=== PATIENT | male | born 1985 | race Two or more races ===

== ENCOUNTER 2017-08-20 20:56 | Emergency (ER) | payer OTHER ==
[~2017-08-20] VITALS: Ht 170.2 cm; Wt 99.8 kg
[~2017-08-20 20:56] MED LIST: ALLEGRA ALLERG180 M1 PO; ATARAX25 MG ORAL; ATIVAN0.5 MG ORAL; BENADRYL25 MG ORAL; LOSARTAN POTASS25 MG ORAL; METOPROLOL TART50 M1 ORAL; MIRVASO30 GM TP; VERDESO100 GM TP
[2017-08-20] MEDS ORDERED: CATAPRES0.1 MG ORAL (21:08)
[2017-08-20] MEDS ORDERED: CLINDAMYCIN HC150 MG ORAL (21:08)
[2017-08-20] MEDS ORDERED: LEVOFLOXACIN500 MG ORAL (21:08)
[2017-08-20] MEDS ORDERED: Solu-MEDROL 125mg Inj IVP ONE (21:30)
[2017-08-20] MEDS ORDERED: Ampicillin/Sulbactam Sod 3 GM in NS 110 ML IVPB ONE (21:30)
[2017-08-20] MEDS ORDERED: Ketorolac 30mg Inj IV ONE (21:30)
--- NOTE | 2017-08-20 21:37 | Emergency Room Report ---
History of Present Illness General Chief Complaint: Fever Source: Patient Present Illness HPI Patient present with complaints of sore throat Initially several days ago he was seen by primary physician Put on Levaquin As his discomfort and symptoms persisted his medication was changed to clindamycin After taking a dose at approximate 6:00 he began feeling some palpitations And as his symptoms were persisting presents to the ER Patient had mild forehead discomfort as well pain with swallowing 5 out of 10 fevers have subsided recently denies any posterior neck pain denies any photophobia He was having some palpitations prior to arrival Allergies: Coded Allergies: PEANUT (Verified Allergy, Severe, 06/03/13) [place] Grass (Verified Allergy, Unknown, 08/20/17) Common Ragweed (Verified Allergy, Unknown, 08/20/17) Dermatophagoides Farinae (Verified Allergy, Unknown, 08/20/17) Dermatophagoides Pteronyssinus (Verified Allergy, Unknown, 08/20/17) Arnold Grass (Verified Allergy, Unknown, 08/20/17) [place] Tree (Verified Allergy, Unknown, 08/20/17) Sesame Seed (Verified Allergy, Unknown, 08/20/17) [place] Grass (Verified Allergy, Unknown, 08/20/17) Wheat (Verified Allergy, Unknown, 08/20/17) AMITRIPTYLINE (Verified Adverse Reaction, Unknown, 08/20/17) FLUSHED HYDROCHLOROTHIAZIDE (Verified Adverse Reaction, Unknown, 08/20/17) FLUSHED Patient History Past Medical History: see triage record Pertinent Family History: none Reviewed Nursing Documentation: PMH: Agreed; PSxH: Agreed Nursing Documentation-PMH Past Medical History: No History, Except For Hx Hypertension: Yes Review of Systems All Other Systems: negative except mentioned in HPI Physical Exam Vital Signs Date Time Temp Pulse Resp B/P (MAP) Pulse Ox O2 Delivery O2 Flow Rate FiO2 08/20/17 21:00 100.9 118 16 153/83 98 Room Air 100.9 Sp02 EP Interpretation: reviewed, normal General Appearance: well appearing, no apparent distress Head: normocephalic, atraumatic Eyes: bilateral eye PERRL, bilateral eye EOMI ENT: hearing grossly normal, TMs + canals normal, uvula midline, pharyngeal erythema - With exudates on the left side Neck: full range of motion, supple, no meningismus, no bony tend Respiratory: lungs clear, normal breath sounds, no rhonchi, no respiratory distress, no retraction, no accessory muscle use Cardiovascular #1: normal peripheral pulses, regular rate, rhythm, no edema, no gallop, no JVD, no murmur Gastrointestinal: normal bowel sounds, non tender, soft, no mass, no organomegaly, non-distended, no guarding, no hernia, no pulsatile mass, no rebound Genitourinary: no CVA tenderness Musculoskeletal: normal inspection Neurologic: oriented x3, 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, 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, motor strength/ tone normal, sensory intact Psychiatric: mood/affect normal Skin: normal color, no rash, warm/dry, palpation normal Lymphatic: normal inspection, no adenopathy Medical Decision Making Diagnostic Impression: Primary Impression: Pharyngitis Additional Impression: Medication reaction ER Course Patient appears to have had a reaction to the clindamycin Clinical exam does show pharyngeal exudate on the left side No signs of any peritonsillar abscess Patient was given IV hydration pain medication At this time will have antibiotic switched to Augmentin and requires close outpatient follow-up Last Vital Signs Date Time Temp Pulse Resp B/P (MAP) Pulse Ox O2 Delivery O2 Flow Rate FiO2 08/20/17 21:00 100.9 118 16 153/83 98 Room Air 100.9 Status: improved Disposition: HOME, SELF-CARE Condition: Improved Scripts Amoxicillin/Potassium Clav 875-125* (AUGMENTIN 875-125 TABLET*) 1 Each Tablet 1 TAB ORAL TWICE A DAY, #20 TAB Prov: Angie Briggs DO 08/21/17 Additional Instructions: Patient is provided with the discharge instructions notified to follow up with primary doctor in the next 2-3 days otherwise return to the er with any worsening symptoms. Please note that this report is being documented using [employer] technology. This can lead to erroneous entry secondary to incorrect interpretation by the dictating instrument. Angie Briggs DO August 20, 2017 21:37
[2017-08-20] MEDS ORDERED: ALPRAZolam 0.5mg tab ORAL ONE (22:00)
[2017-08-20 22:31] VITALS: BP 116/64
[2017-08-21] MEDS ORDERED: AUGMENTIN 875-1 EAC1 ORAL (00:05)
[2017-08-21 00:12] VITALS: BP 112/59
[2017-08-21 00:13] VITALS: BP 116/64
== END 2017-08-21 00:15 | disposition home or self-care (01) ==
LOC: EMR 21:51
DX: J02.9 Acute pharyngitis, unspecified (principal); R00.2 Palpitations; T50.905A Adverse effect of unspecified drugs, medicaments and biological substances, initial encounter; Y92.9 Unspecified place or not applicable; I10 Essential (primary) hypertension; Z91.018 Allergy to other foods; Z91.010 Allergy to peanuts; Z88.8 Allergy status to other drugs, medicaments and biological substances
CPT/HCPCS: 96361; 96374; 96375; 99284; J0295; J1885; J2930

== ENCOUNTER 2018-12-30 21:24 | Emergency (ER) | payer SELFPAY ==
[~2018-12-30] VITALS: Ht 170.2 cm; Wt 108.9 kg
[~2018-12-30 21:24] MED LIST changes: +AUGMENTIN 875-1 EAC1 ORAL; +CATAPRES0.1 MG ORAL; +CLINDAMYCIN HC150 MG ORAL; +LEVOFLOXACIN500 MG ORAL
--- NOTE | 2018-12-30 21:35 | NUR ---
ED Nurse Note: Walk-in patient with complaints of focal headache at left glabella. Patient denies fall, injury or trauma. 2/10 on pain scale.
[2018-12-30 21:36] VITALS: BP 136/86
--- NOTE | 2018-12-30 21:49 | Emergency Room Report ---
History of Present Illness General Chief Complaint: Headache Source: Patient Present Illness HPI Disclaimer: Please note that this report is being documented using [employer] technology. This can lead to erroneous entry secondary to incorrect interpretation by the dictating instrument. HPI: 33-year-old male with history of hypertension presents for evaluation of headache. Symptoms have been present for approximately 1 day. He notes a dull generalized headache and some left ear fullness. He has been taking Tylenol with some improvement. He presented today after work concerned that his headache has persisted for more than 1 day. He has no history of head injury, no family history of intracranial mass, aneurysm, bleeds or other significant pathology. He was concerned because he woke up early this morning with a few seconds of sharp pain over the mid forehead that resolved immediately after waking up. Denies any visual changes, nausea, vomiting, changes in equilibrium. He believes he may have cluster headaches but is never been formally diagnosed. Currently pain is 2/10. He is also complaining some fullness in the left ear without vertiginous symptoms, tinnitus, hearing changes as well as sore throat. Denies fevers. Denies cough, abdominal pain or vomiting PMH: Hypertension, prediabetes PSH: None Allergies: Multiple medications including amitriptyline Social Hx: Denies drug or alcohol abuse Allergies: Coded Allergies: PEANUT (Verified Allergy, Severe, 06/03/13) [place] Grass (Verified Allergy, Unknown, 08/20/17) Common Ragweed (Verified Allergy, Unknown, 08/20/17) Dermatophagoides Farinae (Verified Allergy, Unknown, 08/20/17) Dermatophagoides Pteronyssinus (Verified Allergy, Unknown, 08/20/17) Arnold Grass (Verified Allergy, Unknown, 08/20/17) [place] Tree (Verified Allergy, Unknown, 08/20/17) Sesame Seed (Verified Allergy, Unknown, 08/20/17) [place] Grass (Verified Allergy, Unknown, 08/20/17) Wheat (Verified Allergy, Unknown, 08/20/17) AMITRIPTYLINE (Verified Adverse Reaction, Unknown, 08/20/17) FLUSHED HYDROCHLOROTHIAZIDE (Verified Adverse Reaction, Unknown, 08/20/17) FLUSHED Nursing Documentation-PMH Hx Hypertension: Yes Review of Systems All Other Systems: negative except mentioned in HPI Physical Exam Vital Signs Date Time Temp Pulse Resp B/P (MAP) Pulse Ox O2 Delivery O2 Flow Rate FiO2 12/30/18 21:29 98.4 78 17 136/86 (103) 98 Room Air General: Awake and alert, no acute distress HEENT: NC/AT. EOMI. PERRLA. No sinus tenderness. Visual knight are full. No nystagmus. Facial expressions are symmetrical. No facial droop. Tympanic membranes are pearly eagle, nonbulging, no effusion. Tonsils are 3+, erythematous, no exudate Cardiovascular: RRR. S1 and S2 normal. No murmur appreciated Resp: Normal work of breathing. No cough, wheezing or crackles appreciated Abdomen: Abdomen is soft, nondistended. Nontender MSK: Normal tone and bulk. Moving all extremities. No obvious deformity. There is no drift in the upper or lower extremities bilaterally. Neuro: Awake and alert. Mentating appropriately. Facial expression symmetrical. No dysarthria, no ataxia. SThe patient has intact speech with good repetition, comprehension. Fund of knowledge is full. No aphasia Medical Decision Making Diagnostic Impression: Primary Impression: Headache Additional Impression: URI (upper respiratory infection) ER Course 33-year-old male presents for evaluation of 1 day headache, sore throat, left ear fullness. Symptoms are most consistent with a viral syndrome likely causing low-grade headache. He has had no focal neurologic deficits, no sudden severe headache aside from one brief second of pain earlier today. Physical exam is reassuring. He is overall well-appearing in no acute distress but does seem anxious. He started a new job is under a great deal of stress as well as dealing with some family issues at this time and wanted reevaluation just to be certain that nothing was wrong. He feels reassured at this time and will be given Motrin prior to discharge. Do not believe emergent head imaging is needed as symptoms been present for approximately 24 hours and clinically he is very well-appearing. He can follow-up with his PMD though I did give him strict return precautions. He understands and agrees with treatment plan was discharged home. Last Vital Signs Date Time Temp Pulse Resp B/P (MAP) Pulse Ox O2 Delivery O2 Flow Rate FiO2 12/30/18 21:29 98.4 78 17 136/86 (103) 98 Room Air Disposition: HOME, SELF-CARE Condition: Stable Referrals: [facility] Patient Instructions: General Headache Without Cause Additional Instructions: Follow-up with your doctor to discuss this emergency department visit. If you have a sudden severe headache with vomiting, changes in your vision, changes in your pound or any other sudden changes in your health return to the emergency department for reevaluation. Continue using Tylenol and Motrin as needed for control of headaches. Use Benadryl for control of congestion or nasal spray as needed. Bill Martinez MD Dec 30, 2018 21:49
--- NOTE | 2018-12-30 21:53 | NUR ---
ED Nurse Note: Patient cleared for discharge by ERMD, patient verbalized understanding of discharge instructions and departed with all belongings.
[2018-12-30 21:54] VITALS: BP 136/86
== END 2018-12-30 21:55 | disposition home or self-care (01) ==
LOC: EMR 21:46
DX: J06.9 Acute upper respiratory infection, unspecified (principal); R51 Headache; I10 Essential (primary) hypertension; Z91.048 Other nonmedicinal substance allergy status; Z91.018 Allergy to other foods; Z88.8 Allergy status to other drugs, medicaments and biological substances; R73.03 Prediabetes
CPT/HCPCS: 99282

== ENCOUNTER 2020-03-31 19:47 | Emergency (ER) | payer OTHER ==
[~2020-03-31] VITALS: Ht 172.7 cm; Wt 99.8 kg
[2020-03-31 20:06] VITALS: BP 143/89
[2020-03-31] MEDS ORDERED: LIDOCAINE700 M1 TP (20:11)
[2020-03-31] MEDS ORDERED: IBUPROFEN600 M1 ORAL (20:11)
[2020-03-31] MEDS ORDERED: ROBAXIN-750750 MG PO (20:11)
[2020-03-31] MEDS ORDERED: Ketorolac 30mg Inj ONE (20:11)
[2020-03-31] MEDS ORDERED: ACETAMINOPHEN325 M1 ORAL (20:11)
[2020-03-31] MEDS ORDERED: Ketorolac 30mg Inj IM ONE (20:15)
[2020-03-31 20:17] VITALS: BP 153/92
--- NOTE | 2020-03-31 20:29 | Emergency Room Report ---
History of Present Illness General Chief Complaint: Back Injury Source: Patient Present Illness HPI Disclaimer: Please note that this report is being documented using [employer] technology. This can lead to erroneous entry secondary to incorrect interpretation by the dictating instrument. HPI: 34-year-old male presents for evaluation of back pain. The patient was lifting approximately 70 pounds in his home when he was shifting his feet and felt off balance. He felt a pulling in his lower back but there was no direct injury or trauma. He reports tightness and tenseness. Was worse with sitting up and somewhat better laying flat. He took Tylenol, Motrin, leftover baclofen from a prior injury. He noted some improvement in symptoms. Denies changes in ambulation. Denies pain radiating to the legs. Denies urinary retention, saddle anesthesia, weakness, paresthesias, fever, chills. No prior history of injury. PMH: Denied PSH: Reviewed Allergies: Amitriptyline, seasonal allergies Social Hx: Non-smoker Allergies: Coded Allergies: PEANUT (Verified Allergy, Severe, 06/03/13) [place] Grass (Verified Allergy, Unknown, 08/20/17) Common Ragweed (Verified Allergy, Unknown, 08/20/17) Dermatophagoides Farinae (Verified Allergy, Unknown, 08/20/17) Dermatophagoides Pteronyssinus (Verified Allergy, Unknown, 08/20/17) [place] Grass (Verified Allergy, Unknown, 08/20/17) [place] Tree (Verified Allergy, Unknown, 08/20/17) Sesame Seed (Verified Allergy, Unknown, 08/20/17) [place] Grass (Verified Allergy, Unknown, 08/20/17) Wheat (Verified Allergy, Unknown, 08/20/17) AMITRIPTYLINE (Verified Adverse Reaction, Unknown, 08/20/17) FLUSHED HYDROCHLOROTHIAZIDE (Verified Adverse Reaction, Unknown, 08/20/17) FLUSHED COVID-19 Screening Contact w/high risk pt: No Experienced COVID-19 symptoms?: No COVID-19 Testing 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 Sitting over the edge of the bed. HEENT: NC/AT. EOMI. Resp: Normal work of breathing Skin: Intact. No abrasions, laceration or rash over the exposed skin MSK: Normal tone and bulk. Moving all extremities. No obvious deformity. Straight leg test negative bilaterally. Neuro: Awake and alert. Mentating appropriately. No saddle anesthesia. Patient has intact sensation over the dermatomes of lower extremities. Strength is 5/5 at the hips and knees. Ambulating with a steady gait. Spine: Mild paraspinal tenderness in the lumbar spine but no significant midline tenderness in the lumbosacral region. No step-off or deformity. Medical Decision Making Diagnostic Impression: Primary Impression: Back strain ER Course Is a 34-year-old male presenting for evaluation of back pain after weight lifting. Concern for a lumbar strain, sprain, disc herniation, radiculopathy. Low clinical concern for cauda equina syndrome, space-occupying mass, or spinal epidural abscess as the patient has no red flag symptoms of these conditions. He is neurologically intact and states he is actually feeling better. Believe it is a strain from weightlifting and will discharge with NSAIDs, lidocaine patch, Robaxin. Discussed physical therapy rehabilitation and secondary line of treatment should primary fail. Do not believe he requires acute imaging at this time as there is no direct trauma or injury. Stable for outpatient follow-up and instructed to return with new or worsening symptoms. He understands and agrees with this treatment plan will be discharged home. Last Vital Signs Date Time Temp Pulse Resp B/P (MAP) Pulse Ox O2 Delivery O2 Flow Rate FiO2 03/31/20 19:48 98.8 110 22 153/92 (112) 97 Room Air Disposition: HOME, SELF-CARE Condition: Stable Scripts Lidocaine (Lidocaine) 1 Each Adh..patch 700 MG TP DAILY, #14 PATCH Prov: Bill Martinez MD 03/31/20 Methocarbamol* (ROBAXIN-750*) 750 Mg Tablet 750 MG PO QID, #28 TAB 0 Refills Prov: Bill Martinez MD 03/31/20 Ibuprofen* (MOTRIN*) 600 Mg Tablet 600 MG ORAL Q8H PRN for FOR PAIN, #30 TAB 0 Refills Prov: Bill Martinez MD 03/31/20 Acetaminophen* (ACETAMINOPHEN 325MG TABLET*) 325 Mg Tablet 650 MG ORAL Q6H PRN for For Pain, #30 TAB Prov: Bill Martinez MD 03/31/20 Referrals: [facility] Patient Instructions: Back Pain, Adult, Herniated Disk Additional Instructions: Please follow-up with your primary care doctor in the next 1 to 3 days to discuss this emergency department visit and for reevaluation. If you have any new or worsening symptoms please return to the emergency department for reevaluation. Please note that this report is being documented using [employer] technology. This can lead to erroneous entry secondary to incorrect interpretation by the dictating instrument. Bill Martinez MD Mar 31, 2020 20:29
== END 2020-03-31 20:17 | disposition home or self-care (01) ==
LOC: EMR 20:02
DX: S39.012A Strain of muscle, fascia and tendon of lower back, initial encounter (principal); I10 Essential (primary) hypertension; X50.0XXA Overexertion from strenuous movement or load, initial encounter; Y93.B9 Activity, other involving muscle strengthening exercises; Y92.9 Unspecified place or not applicable; Z91.010 Allergy to peanuts; Z91.09 Other allergy status, other than to drugs and biological substances; Z88.1 Allergy status to other antibiotic agents; Z88.8 Allergy status to other drugs, medicaments and biological substances
CPT/HCPCS: 96372; 99283; J1885